=== PATIENT | female | born 1965 | race Caucasian/White ===

== ENCOUNTER → 2016-10-18 | Outpatient (CLI) | payer OTHER | END | disposition home or self-care (01) | LOC: GMAL 11:49 | PROVIDERS: ATTEND Family Medicine | DX: R21 Rash and other nonspecific skin eruption (principal) ==

== ENCOUNTER → 2017-02-01 | Outpatient (CLI) | payer OTHER | LOC: GMAL 14:18 | PROVIDERS: ATTEND Family Medicine | DX: B95.62 Methicillin resistant Staphylococcus aureus infection as the cause of diseases classified elsewhere (principal) ==

== ENCOUNTER → 2017-02-22 | Outpatient (CLI) | payer OTHER | END | disposition home or self-care (01) | LOC: LAB.O 09:27 | PROVIDERS: ATTEND Family Medicine | DX: B96.89 Other specified bacterial agents as the cause of diseases classified elsewhere (principal); Z16.11 Resistance to penicillins ==

== ENCOUNTER → 2017-05-19 | Outpatient (CLI) | payer OTHER ==
--- NOTE | 2017-05-21 19:00 | US ---
EXAM DESCRIPTION: Abdomen,Complete: Ultrasound CLINICAL HISTORY: ABDOMINAL PAIN COMPARISON: None Available. TECHNIQUE: Transabdominal scannin-dimensional and Doppler modes. FINDINGS: The gallbladder is normal in size, shape, and echogenicity, with no intraluminal stones or sludge. No fluid around the gallbladder. Wall thickness normal. 2.3 mm. Common bile duct caliber 3.1 mm mm which is within normal limits. No stones in the visualized portion of the duct. Not tender with transducer pressure. The liver demonstrates normal echogenicity; contour of the liver capsule is smooth where seen. No fluid around the liver. Intrahepatic biliary ducts are non-dilated. Craniocaudal dimension in the mid-clavicular axis is 15.2 cm. Pancreas head, body, and tail normal in size and echogenicity. Pancreatic duct is not dilated. Normal Doppler vascularity in the ghassan hepatis. Abdominal aorta diameter proximal 2.1 cm. Mid 2.6 cm. Distal 1.7 cm. IVC visualized; normal caliber. Spleen normal echogenicity; long axis measurement is 8.6 cm. No fluid in the spleno-renal fossa. Right kidney measures 11.1 x 5.8 x 5.2 cm normal mid renal cortical thickness. Echogenicity normal with no hydronephrosis, no large calcifications, and no perinephric fluid. Contour smooth. Vascularity normal. Ureter not visualized. Left kidney measures 9.9 x 6.6 x 6.2 cm with normal mid renal cortical thickness. Echogenicity normal with no hydronephrosis, no large calcifications, and no perinephric fluid. Contour smooth. Vascularity normal. Ureter not visualized. IMPRESSION: 1. Normal ultrasound of the abdomen. No organomegaly. No soft tissue masses. No free fluid. Electronically signed by: Jordi Brito MD 05/21/2017 6:59 PM CDT Workstation: [id number]
== END | disposition home or self-care (01) ==
LOC: US 07:58
PROVIDERS: ATTEND Family Medicine
DX: R10.11 Right upper quadrant pain (principal)

== ENCOUNTER → 2018-11-01 | Outpatient (CLI) | payer OTHER | LOC: LAB.O 15:43 | PROVIDERS: ATTEND Family Medicine | DX: R19.7 Diarrhea, unspecified (principal) ==

== ENCOUNTER → 2018-11-02 | Outpatient (CLI) | payer OTHER ==
--- NOTE | 2018-11-04 10:27 | MRI ---
EXAM DESCRIPTION: Cervical Spine CLINICAL HISTORY: 53 years Female, NECK PAIN COMPARISON: None available. TECHNIQUE: Multiplanar, multiecho imaging of the cervical spine was performed without gadolinium administration. FINDINGS: Straightening of the normal lordotic curvature of the cervical spine is noted. Bone marrow edema is identified in in the left C3 and C4 inferior facets, most likely consistent with facet arthropathy. The vertebral body heights are well-maintained with no acute compression deformity. Multilevel intervertebral disc space narrowing is noted. The visualized spinal cord demonstrates no signal abnormality. Few subcentimeter lymph nodes are identified in the neck bilaterally. C2-C3: No evidence of disc herniation. No significant canal stenosis or neural foraminal narrowing. C3-C4: Moderate bilateral neural foraminal narrowing is noted secondary to uncovertebral joint arthropathy. C4-C5: Moderate right and mild left neural foraminal narrowing is noted secondary to uncovertebral joint arthropathy. C5-C6: Moderate to severe right and [id number] left neural foraminal narrowing is noted secondary to uncovertebral joint arthropathy. C6-C7: No evidence of disc herniation. No significant canal stenosis or neural foraminal narrowing. C7-T1: No evidence of disc herniation. No significant canal stenosis or neural foraminal narrowing. IMPRESSION: Multilevel degenerative disc disease and facet arthropathy throughout the cervical spine with variable degrees of neural foraminal narrowing, worse at C5-C6 level on the right side. In addition bone marrow edema is identified in the left-sided facets of C3 and C4 vertebral bodies, consistent with facet arthropathy. Electronically signed by: Ramo Florez MD 11/04/2018 10:24 AM CDT
--- NOTE | 2018-11-04 10:28 | US ---
EXAM DESCRIPTION: Soft Tissue,Head/Neck CLINICAL HISTORY: 53 years Female, NECK PAIN / SUPRACLAVICULAR SPACE COMPARISON: None. FINDINGS: There is a 1.2 x 0.8 x 0.7 cm lymph node noted in the neck in the palpable area of concern. IMPRESSION: There is a 1.2 x 0.8 x 0.7 cm lymph node noted in the left neck in the palpable area of concern. Electronically signed by: Ramo Florez MD 11/04/2018 10:24 AM CDT
== END ==
LOC: MRI 10:51
PROVIDERS: ATTEND Family Medicine
DX: M50.30 Other cervical disc degeneration, unspecified cervical region (principal)

== ENCOUNTER → 2019-01-16 | Outpatient (CLI) | payer OTHER ==
--- NOTE | 2019-01-17 14:55 | MAM ---
EXAM DESCRIPTION: 3D Screening BILATERAL : Digital Mammography. CLINICAL HISTORY: 53 years Female SCREENING . No complaints or personal or family history of breast cancer. Hysterectomy. Childbirth. HRT 5 or more years ago.. Lifetime risk of developing breast cancer (Tyrer-Cuzick model)(%): 6.0. COMPARISON: Bilateral 2-D screening digital mammography 02/26/2014. TECHNIQUE: Bilateral CC and MLO projection full-field images, digital tomosynthesis mammographic technique. Bilateral digital 2-D full-field MLO images. CAD not available for tomosynthesis or 2-D images. FINDINGS: The breast parenchymal density pattern is: Scattered areas of fibroglandular density. No skin thickening or nipple retraction. Bilateral solitary microcalcifications. No new focal, stellate mass or density, focal asymmetry , and no suspicious microcalcifications bilaterally. Stable mammograms compared to prior study. Taking into account, differences in mammographic technique. IMPRESSION: Benign exam. BIRAD CATEGORY: 2 BENIGN FINDINGS. RECOMMENDATIONS: FOLLOW UP: Routine digital bilateral mammographic screening, one year interval from January 2019. Written communication explaining the IMPRESSION and follow-up, will be mailed to the patient and referring health care provider. The FINDINGS and the FOLLOW-UP plan were reviewed in person with the patient after the examination. According to the [employer], yearly mammograms are recommended starting at age 40 and continuing as long as a woman is in good health. Any breast change noted on a breast self-exam should be reported promptly to the patient's healthcare provider. Breast MRI is recommended for women with an approximately 20-25% or greater lifetime risk of breast cancer, including women with a strong family history of breast or ovarian cancer and women who have been treated for Hodgkin's disease. A negative mammographic report should not delay tissue diagnosis in patients with significant clinical history or physical findings. Extremely dense breast tissue limits the sensitivity of digital mammography. Electronically signed by: Jordi Brito MD 01/17/2019 2:53 PM CDT
== END ==
LOC: MAMMO 14:22
PROVIDERS: ATTEND Family Medicine
DX: Z12.31 Encounter for screening mammogram for malignant neoplasm of breast (principal)

== ENCOUNTER 2020-06-06 13:50 | Emergency (ER) | payer BC, OTHER ==
--- NOTE | 2020-06-06 16:51 | ED.PDOC ---
History of Present Illness - General Chief Complaint: Neuro Symptoms/Deficits Time Seen by Provider: 06/06/20 13:57 - History of Present Illness Initial Comments: This is a 55-year-old female with history of hypothyroid, restless leg syndrome, chronic pain, presented to emergency department for insomnia. Patient states she has had ongoing issues with insomnia for several months, but states she is only slept "25 minutes in the last 4 days." She also reports some auditory hallucinations, but cannot describe what the voices are saying. She denies any command hallucinations. She denies any SI/HI. She states that she has no idea what medications she is taken over the last several days or if there is been any changes. She denies any fever, cough, vomiting. She denies any headaches. Allergies/Adverse Reactions: Allergies Diphenhydramine [From Benadryl] Allergy (Verified 06/06/20 14:59) Home Medications: Ambulatory Orders Levothyroxine Sodium 300 mcg PO DAILY #30 tab 06/06/20 Trazodone HCl [Trazodone Hydrochloride] 50 mg PO BEDTIME PRN #20 tab 06/06/20 Review of Systems - Review of Systems Constitutional: Denies: chills, fever EENTM: Denies: double vision, nose pain, nose congestion, throat pain, throat swelling Respiratory: Denies: cough, orthopnea, short of breath, stridor, wheezing Cardiology: Denies: chest pain, edema Gastrointestinal/Abdominal: Denies: abdominal pain, diarrhea, nausea, vomiting Genitourinary: Denies: dysuria, frequency, hematuria Musculoskeletal: Denies: joint pain, joint swelling, muscle stiffness, neck pain Skin: Denies: dryness, lumps Neurological: States: other - Insomnia. Denies: depressed, headache, pre- existing deficit, tingling, weakness Endocrine: Denies: excessive sweating, intolerance to cold, intolerance to heat, increased urine, unexplained weight gain, unexplained weight loss Hematologic/Lymphatic: States: no symptoms reported Unable to Obtain Due To: clinical condition Past Medical History (General) - Patient Medical History Hx MRSA: Yes - Wound 2017 MRSA Source:: Wound Family Medical History - Family History Mother Family History: Unknown Physical Exam - Physical Exam General Appearance: Alert, Anxious Ears, Nose, Throat: hearing grossly normal, normal ENT inspection, normal pharynx Neck: non-tender, full range of motion, supple, normal inspection Respiratory: chest non-tender, lungs clear, normal breath sounds, no respiratory distress, no accessory muscle use Cardiovascular/Chest: normal peripheral pulses, regular rate, rhythm, no edema, no gallop, no JVD Peripheral Pulses: dorsalis pedis,right: 2+, dorsalis pedis,left: 2+, posterior tibialis,right: 2+, posterior tibialis,left: 2+ Gastrointestinal/Abdominal: non tender, soft Back Exam: normal inspection, no CVA tenderness, no vertebral tenderness Extremity: normal range of motion, non-tender, normal inspection Neurologic: master esthetician II-XII nml as tested, no motor/sensory deficits, alert, normal mood/affect, other - Disoriented to time only, oriented to person and place. There were no focal deficits. She does not appear to be actively hallucinating at this time, although she does appear slightly confused, but answers all questions appropriately Skin Exam: normal color, warm/dry Progress - Progress Progress: 06/06/20 16:44 Rechecked. Mental status seems to be improved. She is not having any hallucinations. I discussed with her , he is concerned about her insomnia and altered mental status. I explained plan for CT head since lab work has been fairly unremarkable. 06/06/20 18:57 Rechecked. Discussed plan for discharge. Discussed elevated TSH and low T4, will increase levothyroxine to 300 mcg daily. Will start trazodone. At this time I strongly suspect her hallucinations and altered mental status is likely related to her medications. The states he has no idea what medication she has been taking. She does have amphetamines, multiple opiate medications, Xanax and her bags. She was fairly confused on arrival, but her mental status was markedly improved and appeared to be normal at the time of discharge. I do not feel she needs to be admitted. She reported some vague auditory hallucinations, no command hallucinations and adamantly denied any SI or HI. I do not feel she is an imminent threat to herself or others at this time. I explained this to her, and she agreed with plan to follow-up with PCP later this week. Strict warnings given to return the emergency room for worsening changes in mental status, worsening hallucinations, SI/HI, or any other concerns. DDX: Hyper/hypothyroid, psychosis, polypharmacy, drug side effect Hema Demarco DO [facility] #[id number] - Results/Orders Results/Orders: Laboratory Results - last 24 hr 06/06/20 06/06/20 06/06/20 14:00 14:00 14:00 WBC 6.7 RBC 4.68 Hgb 14.5 Hct 41.7 MCV 89.0 MCH 31.0 MCHC 34.9 RDW 12.1 Plt Count 320 MPV 7.7 Absolute Neuts (auto) 3.10 Absolute Lymphs (auto) 2.60 Absolute Monos (auto) 0.90 H Absolute Eos (auto) 0.00 Absolute Basos (auto) 0.10 Neutrophils % 46.2 Lymphocytes % 39.4 Monocytes % 12.8 H Eosinophils % 0.7 L Basophils % 0.9 Sodium 135 Potassium 4.1 Chloride 98 L Carbon Dioxide 26 Anion Gap 15.1 BUN 11 Creatinine 0.86 BUN/Creatinine Ratio 12.8 Random Glucose 82 Serum Osmolality 268.6 L Calcium 9.5 Total Bilirubin 0.7 AST 27 ALT 25 Alkaline Phosphatase 95 Serum Total Protein 7.3 Albumin 4.6 Globulin 2.7 Albumin/Globulin Ratio 1.7 TSH 6.28 H Free T4 Index Thyroxine (T4) T3 Uptake Urine Color Urine Appearance Urine pH Ur Specific Dodge Urine Protein Urine Glucose (UA) Urine Ketones Urine Blood Urine Nitrite Urine Bilirubin Urine Urobilinogen Ur Leukocyte Esterase Urine RBC Urine WBC Ur Epithelial Cells Urine Bacteria Salicylates < 4.0 Urine Opiates Screen Acetaminophen < 10.0 L Urine Barbiturates Ur Phencyclidine Scrn U Amphetamin/Meth Scrn U Benzodiazepines Scrn U Cocaine Metab Screen U Cannabinoids Screen Ethyl Alcohol < 5.10 06/06/20 06/06/20 06/06/20 14:00 14:35 17:12 WBC RBC Hgb Hct MCV MCH MCHC RDW Plt Count MPV Absolute Neuts (auto) Absolute Lymphs (auto) Absolute Monos (auto) Absolute Eos (auto) Absolute Basos (auto) Neutrophils % Lymphocytes % Monocytes % Eosinophils % Basophils % Sodium Potassium Chloride Carbon Dioxide Anion Gap BUN Creatinine BUN/Creatinine Ratio Random Glucose Serum Osmolality Calcium Total Bilirubin AST ALT Alkaline Phosphatase Serum Total Protein Albumin Globulin Albumin/Globulin Ratio TSH Free T4 Index 0.25 L Thyroxine (T4) 10.15 T3 Uptake 40.6 Urine Color Yellow Urine Appearance Clear Urine pH 6.0 Ur Specific Dodge 1.010 Urine Protein Negative Urine Glucose (UA) Negative Urine Ketones Negative Urine Blood Negative Urine Nitrite Negative Urine Bilirubin Negative Urine Urobilinogen 0.2 Ur Leukocyte Esterase Trace H Urine RBC 0 Urine WBC 0-1 Ur Epithelial Cells 0 Urine Bacteria 0 Salicylates Urine Opiates Screen Negative Acetaminophen Urine Barbiturates Negative Ur Phencyclidine Scrn Negative U Amphetamin/Meth Scrn Negative U Benzodiazepines Scrn Negative U Cocaine Metab Screen Negative U Cannabinoids Screen Negative Ethyl Alcohol EXAM: CT Head Without Intravenous Contrast CLINICAL HISTORY: The patient is 55 years old and is Female; altered mental status TECHNIQUE: Axial computed tomography images of the head/brain without intravenous contrast. Sagittal and coronal reformatted images were created and reviewed. This CT exam was performed using one or more of the following dose reduction techniques: automated exposure control, adjustment of the mA and/or kV according to patient size, and/or use of iterative reconstruction technique. COMPARISON: No relevant prior studies available. FINDINGS: Brain: Unremarkable. No hemorrhage. No significant white matter disease. No edema. Ventricles: Unremarkable. No ventriculomegaly. Bones/joints: Unremarkable. No acute skull fracture. Soft tissues: Unremarkable. Sinuses: Unremarkable as visualized. No acute sinusitis. Mastoid air cells: No significant mastoid fluid. IMPRESSION: No acute intracranial findings. No hemorrhage. Electronically signed by: Gaby Lara MD 06/06/2020 5:21 Departure - Departure Clinical Impression: Hallucinations Insomnia Qualifiers: Insomnia type: unspecified Qualified Code(s): G47.00 - Insomnia, unspecified Hypothyroid Qualifiers: Hypothyroidism type: unspecified Qualified Code(s): E03.9 - Hypothyroidism, unspecified Disposition: Discharge to Home or Self Care Condition: Good Departure Forms: ED Discharge - Pt. Copy, Patient Portal Self Enrollment Referrals: Tomas Palacio III, MD [Primary Care Provider] - 1-2 Days Prescriptions: Levothyroxine Sodium 300 mcg PO DAILY #30 tab Trazodone HCl [Trazodone Hydrochloride] 50 mg PO BEDTIME PRN #20 tab PRN Reason: Insomnia Home Medications: Ambulatory Orders Levothyroxine Sodium 300 mcg PO DAILY #30 tab 06/06/20 Trazodone HCl [Trazodone Hydrochloride] 50 mg PO BEDTIME PRN #20 tab 06/06/20
--- NOTE | 2020-06-06 17:23 | CT ---
EXAM: CT Head Without Intravenous Contrast CLINICAL HISTORY: The patient is 55 years old and is Female; altered mental status TECHNIQUE: Axial computed tomography images of the head/brain without intravenous contrast. Sagittal and coronal reformatted images were created and reviewed. This CT exam was performed using one or more of the following dose reduction techniques: automated exposure control, adjustment of the mA and/or kV according to patient size, and/or use of iterative reconstruction technique. COMPARISON: No relevant prior studies available. FINDINGS: Brain: Unremarkable. No hemorrhage. No significant white matter disease. No edema. Ventricles: Unremarkable. No ventriculomegaly. Bones/joints: Unremarkable. No acute skull fracture. Soft tissues: Unremarkable. Sinuses: Unremarkable as visualized. No acute sinusitis. Mastoid air cells: No significant mastoid fluid. IMPRESSION: No acute intracranial findings. No hemorrhage. Electronically signed by: Gaby Lara MD 06/06/2020 5:21 PM CDT
[2020-06-06 19:38] VITALS: O2SAT 99
[2020-06-06 20:21] VITALS: TEMP 98.1
[2020-06-06 20:31] VITALS: BP 125/75
== END 2020-06-06 21:08 | disposition home or self-care (01) ==
LOC: ER 13:50
DX: G47.00 Insomnia, unspecified (principal); E03.9 Hypothyroidism, unspecified; R44.0 Auditory hallucinations; G25.81 Restless legs syndrome; G89.29 Other chronic pain

== ENCOUNTER → 2020-06-16 | Outpatient (CLI) | payer SELFPAY | LOC: LAB.O 11:35 | PROVIDERS: ATTEND Podiatrist Foot & Ankle Surgery | DX: R30.0 Dysuria (principal); E87.1 Hypo-osmolality and hyponatremia ==